=== PATIENT | male | born 1945 | race Caucasian/White ===

== ENCOUNTER 2017-08-17 10:10 | Inpatient (IN) | payer OTHER ==
[~2017-08-17] VITALS: Ht 188 cm; Wt 97.0 kg
[2017-08-17 10:44] LABS: BASOPHIL (%) 0.5 % (0-1); EOSINOPHIL (%) 3.3 % (0-5); EOSINOPHIL COUNT 0.3 K/uL (0-0.3); HEMATOCRIT 38.4 % (38.0-50.0); HEMOGLOBIN 12.9 G/DL (12.5-16.6); IMMATURE GRANULOCYTE (%) 0.7 % (0.0-0.7); LYMPHOCYTE (%) 11.3 % (15-42); LYMPHOCYTE COUNT 0.9 K/uL (1.0-2.8); MCHC 33.6 G/DL (30.0-36.0); MCV 95.3 FL (86-99); MONOCYTE (%) 6.1 % (3-12); MONOCYTE COUNT 0.5 K/uL (0-0.8); NEUTROPHIL (%) 78.1 % (45-76); NEUTROPHIL COUNT 5.9 K/uL (1.8-6.4); PLATELET COUNT 151 K/uL (156-360); RBC DIS.WIDTH-CV 12.7 % (11.8-14.6); RBC DIS.WIDTH-SD 44.1 % (39-53); RED BLOOD COUNT 4.03 M/uL (4.00-5.50); WHITE BLOOD COUNT 7.6 K/uL (4.1-10.2)
[2017-08-17 10:53] LABS: CHLORIDE 107 mEq/L (99-109); INTER. NORMALIZED RATIO 1.1; POTASSIUM 4.3 mEq/L (3.7-5.4); SODIUM 138 mEq/L (136-147)
[2017-08-17 10:55] LABS: GLUCOSE 283 mg/dL (70-99)
[2017-08-17 10:56] LABS: PTT 22.6 SEC (25-37)
[2017-08-17 10:59] LABS: CREATININE 1.7 mg/dL (0.6-1.3); GFR ESTIMATE (CALCULATED) 43 mL/min/ (58.99-99999)
[2017-08-17 11:00] LABS: UREA NITROGEN (BUN) 22 mg/dL (9-23)
[2017-08-17 11:06] LABS: TROP-I INTERPRETATION INDETERMINATE; TROPONIN-I 0.33 ng/mL (0.0-0.30)
[2017-08-17] MEDS ORDERED: MEMANTINE HCL10 MG PO (14:29)
[2017-08-17] MEDS ORDERED: LOVASTATIN20 MG PO (14:29)
[2017-08-17] MEDS ORDERED: TRADJENTA5 MG PO (14:29)
[2017-08-17] MEDS ORDERED: GLIPIZIDE10 MG PO (14:30)
[2017-08-17] MEDS ORDERED: LISINOPRIL10 MG PO (14:30)
[2017-08-17] MEDS ORDERED: OMEPRAZOLE40 M1 PO (14:30)
[2017-08-17] MEDS ORDERED: CITALOPRAM HBR20 MG PO (14:30)
[2017-08-17 16:26] VITALS: BP 115/55
[2017-08-17 19:33] VITALS: BP 102/67
[2017-08-17 19:59] LABS: INTER. NORMALIZED RATIO 1.1
[2017-08-17 20:04] LABS: PTT 69.2 SEC (25-37)
[2017-08-17 20:17] LABS: TROP-I INTERPRETATION POSITIVE; TROPONIN-I 1.04 ng/mL (0.0-0.30)
[2017-08-17 23:34] VITALS: BP 113/62
[2017-08-18 05:01] VITALS: BP 98/65
[2017-08-18 05:10] LABS: HEMATOCRIT 36.6 % (38.0-50.0); HEMOGLOBIN 12.1 G/DL (12.5-16.6); MCHC 33.1 G/DL (30.0-36.0); MCV 93.8 FL (86-99); PLATELET COUNT 157 K/uL (156-360); RBC DIS.WIDTH-CV 12.9 % (11.8-14.6); RBC DIS.WIDTH-SD 44.3 % (39-53); WHITE BLOOD COUNT 6.1 K/uL (4.1-10.2)
[2017-08-18 05:27] LABS: CHLORIDE 106 MEQ/L (99-109); CREATININE 1.7 MG/DL (0.6-1.3); GFR ESTIMATE (CALCULATED) 43 mL/min/ (58.99-99999); GLUCOSE 221 mg/dL (70-99); SODIUM 138 MEQ/L (136-147); UREA NITROGEN (BUN) 28 mg/dL (9-23)
[2017-08-18 05:38] LABS: TROP-I INTERPRETATION POSITIVE
[2017-08-18 09:20] VITALS: BP 113/69
[2017-08-18 11:28] VITALS: BP 106/63
[2017-08-18 14:53] LABS: INTER. NORMALIZED RATIO 1.2
[2017-08-18 15:24] VITALS: BP 111/69
[2017-08-18 19:30] VITALS: BP 118/56
[2017-08-19 00:20] VITALS: BP 124/73
[2017-08-19 04:10] VITALS: BP 144/77
[2017-08-19 07:15] LABS: BASOPHIL (%) 0.7 % (0-1); EOSINOPHIL (%) 4.2 % (0-5); EOSINOPHIL COUNT 0.2 K/uL (0-0.3); HEMATOCRIT 34.1 % (38.0-50.0); HEMOGLOBIN 11.5 G/DL (12.5-16.6); IMMATURE GRANULOCYTE (%) 0.7 % (0.0-0.7); LYMPHOCYTE (%) 22.7 % (15-42); MCH 31.8 PG (29.0-34.0); MCHC 33.7 G/DL (30.0-36.0); MCV 94.2 FL (86-99); MONOCYTE (%) 11.1 % (3-12); MONOCYTE COUNT 0.5 K/uL (0-0.8); NEUTROPHIL (%) 60.6 % (45-76); NEUTROPHIL COUNT 2.7 K/uL (1.8-6.4); PLATELET COUNT 148 K/uL (156-360); RBC DIS.WIDTH-CV 12.9 % (11.8-14.6); RBC DIS.WIDTH-SD 44.4 % (39-53); RED BLOOD COUNT 3.62 M/uL (4.00-5.50); WHITE BLOOD COUNT 4.5 K/uL (4.1-10.2)
[2017-08-19 07:18] LABS: INTER. NORMALIZED RATIO 1.2
[2017-08-19 07:21] LABS: PTT 48.8 SEC (25-37)
[2017-08-19 07:50] LABS: CHLORIDE 102 MEQ/L (99-109); CREATININE 1.8 MG/DL (0.6-1.3); GFR ESTIMATE (CALCULATED) 40 mL/min/ (58.99-99999); GLUCOSE 239 mg/dL (70-99); POTASSIUM 3.9 MEQ/L (3.7-5.4); SODIUM 136 MEQ/L (136-147); UREA NITROGEN (BUN) 28 mg/dL (9-23)
[2017-08-19 08:45] VITALS: BP 118/7
[2017-08-19 12:25] VITALS: BP 115/70
[2017-08-19 16:45] VITALS: BP 124/70
[2017-08-19 21:58] VITALS: BP 108/73
[2017-08-20] VITALS (7 sets, daily range): BP systolic 103–137; BP diastolic 56–76
[2017-08-20 07:24] LABS: INTER. NORMALIZED RATIO 1.2
[2017-08-20 07:54] LABS: PTT 54.8 SEC (25-37)
[2017-08-20 12:04] LABS: INTER. NORMALIZED RATIO 1.2
[2017-08-20 12:07] LABS: PTT 59.6 SEC (25-37)
[2017-08-20 17:59] LABS: INTER. NORMALIZED RATIO 1.2
[2017-08-20 18:02] LABS: PTT 67.8 SEC (25-37)
[2017-08-21 04:40] VITALS: BP 97/53
[2017-08-21 07:00] LABS: HEMATOCRIT 34.5 % (38.0-50.0); HEMOGLOBIN 11.4 G/DL (12.5-16.6); MCH 31.5 PG (29.0-34.0); MCV 95.3 FL (86-99); PLATELET COUNT 168 K/uL (156-360); RBC DIS.WIDTH-CV 12.9 % (11.8-14.6); RBC DIS.WIDTH-SD 44.5 % (39-53); RED BLOOD COUNT 3.62 M/uL (4.00-5.50); WHITE BLOOD COUNT 4.1 K/uL (4.1-10.2)
[2017-08-21 07:06] LABS: INTER. NORMALIZED RATIO 1.2
[2017-08-21 07:09] LABS: PTT 60.1 SEC (25-37)
[2017-08-21 08:49] VITALS: BP 114/66
[2017-08-21] MEDS ORDERED: LOVENOX100 MG/1 M SC (10:29)
[2017-08-21 12:33] VITALS: BP 114/54
[2017-08-21 15:11] VITALS: BP 143/70
[2017-08-21 19:08] VITALS: BP 150/70
[2017-08-22 00:02] VITALS: BP 16/54
[2017-08-22 03:28] VITALS: BP 139/63
[2017-08-22 05:43] LABS: INTER. NORMALIZED RATIO 1.4
[2017-08-22 05:45] LABS: PTT 80.2 SEC (25-37)
[2017-08-22 08:00] VITALS: BP 159/73
[2017-08-22] MEDS ORDERED: COUMADIN2.5 MG PO (10:53)
[2017-08-26 18:06] LABS: ACTIVATED PROTEIN C RESIST+ 4.7 ratio (>=2.1); DRVVT Mixing Study Interp Not Indicated (()); FACTOR VIII ACTIVITY+ 160 % (50-180); PROTEIN C FUNCTIONAL ACTIVITY+ 93 % (70-180); PTT-LA 97 sec (<=40); Protein S, Free 107 % normal (57-171); Thrombosis Consult Level Limited (()); dRVVT Screen 36 sec (<=45)
[2017-08-27 11:50] LABS: ANTITHROMBIN III ACTIVITY+ 77 % activi (80-120)
== END 2017-08-22 12:30 | disposition home health service (06) | DRG 175 ==
LOC: EME 10:10 → 4EAST 14:21 → EDOF 14:21 → ENRESERV 14:22 → 4EAST 16:23
PROVIDERS: Emergency Medicine; Hospitalist; Internal Medicine; Internal Medicine Hematology & Oncology
DX: I26.09 Other pulmonary embolism with acute cor pulmonale (principal); J96.01 Acute respiratory failure with hypoxia; I27.20 Pulmonary hypertension, unspecified; I82.431 Acute embolism and thrombosis of right popliteal vein; I12.9 Hypertensive chronic kidney disease with stage 1 through stage 4 chronic kidney disease, or unspecified chronic kidney disease; N18.3 Chronic kidney disease, stage 3 (moderate); E11.22 Type 2 diabetes mellitus with diabetic chronic kidney disease; F03.90 Unspecified dementia, unspecified severity, without behavioral disturbance, psychotic disturbance, mood disturbance, and anxiety; R74.8 Abnormal levels of other serum enzymes; R91.1 Solitary pulmonary nodule; K86.89 Other specified diseases of pancreas; R41.3 Other amnesia; K21.9 Gastro-esophageal reflux disease without esophagitis; Z85.528 Personal history of other malignant neoplasm of kidney; Z90.5 Acquired absence of kidney; Z87.891 Personal history of nicotine dependence; Z79.84 Long term (current) use of oral hypoglycemic drugs; Z60.2 Problems related to living alone; Z77.098 Contact with and (suspected) exposure to other hazardous, chiefly nonmedicinal, chemicals
CPT/HCPCS: 70450; 71045; 78582; 80048; 81240 90; 81241 90; 82948; 83090 90; 83880; 84484; 85025; 85027; 85240 90; 85300 90; 85303 90; 85305 90; 85306 90; 85307 90; 85379; 85610; 85613 90; 85730; 85730 90; 86146 90; 86147 90; 93005; 93306; 93970; 94799; 99281; 99285; A9539; A9540; J1815